=== PATIENT | male | born 1965 | race Caucasian/White ===

== ENCOUNTER 2017-06-24 13:01 | Emergency (ER) | payer BC ==
[~2017-06-24] VITALS: Ht 185.4 cm; Wt 97.7 kg
[2017-06-24] MEDS ORDERED: normal saline 1000ml 1,000 ML IV ONE (13:12)
[2017-06-24] MEDS ORDERED: ketorolac trometh. 30mg/ml inj. IV ONE (13:15)
[2017-06-24] MEDS ORDERED: tamsulosin 0.4mg capsule PO ONE (13:15)
[2017-06-24] MEDS ORDERED: morphine 10mg/ml inj. IV ONE (13:15)
[2017-06-24] MEDS ORDERED: ondansetron/PF 4mg/2ml inj IV ONE (13:15)
[2017-06-24] MEDS ORDERED: morphine 4 MG/ML inj SYRINge IV ONE (13:15)
[2017-06-24] MEDS ORDERED: normal saline 1000ML IV soln IVB ONE (13:15)
[2017-06-24] MEDS ORDERED: LIDOcaine 2% (20mg/ml) 5ml vial IV ONE (14:00)
[2017-06-24 14:24] LABS: CLARITY,URINE CLOUDY (Clear); COLOR,URINE YELLOW (Yellow); GLUCOSE, URINE NEGATIVE (Neg); KETONES,URINE NEGATIVE (Neg); LEUKOCYTE ESTERASE ,URINE NEGATIVE (Neg); NITRITES, URINE NEGATIVE (Neg); OCCULT BLOOD,URINE LARGE (Neg); PROTEIN,URINE TRACE mg/dl (Neg)
[2017-06-24 14:26] LABS: UA COLLECTION TYPE URINAL
[2017-06-24 14:27] LABS: URINE AMPHETAMINE SCREEN NEGATIVE (Neg); URINE BARBITUATE SCREEN NEGATIVE (Neg); URINE BENZODIAZEPINES SCREEN NEGATIVE (Neg); URINE CANNABINOID SCREEN POSITIVE (Neg); URINE COCAINE SCREEN POSITIVE (Neg); URINE METHADONE SCREEN NEGATIVE (Neg); URINE OPIATE SCREEN POSITIVE (Neg); URINE PHENCYCLIDINE SCREEN NEGATIVE (Neg)
[2017-06-24 14:47] LABS: AMORPHOUS PHOSPHATES 2+
[2017-06-24 14:48] LABS: BACTERIA,URINE 1+ /HPF (Neg); SQUAMOUS EPITHELIAL CELL,UR FEW /LPF (FEW); WBC,URINE 0-4 /HPF (0-4)
[2017-06-24 15:36] VITALS: BP 127/76
[2017-06-24] MEDS ORDERED: NAPR-56 PO (15:40)
[2017-06-24] MEDS ORDERED: FLO0.4C PO (15:40)
[2017-06-24] MEDS ORDERED: HYDR-565 PO (15:40)
== END 2017-06-24 15:53 | disposition home or self-care (01) ==
LOC: ER 13:02
DX: N23 Unspecified renal colic (principal); R31.9 Hematuria, unspecified; F19.20 Other psychoactive substance dependence, uncomplicated; F17.200 Nicotine dependence, unspecified, uncomplicated; Z98.890 Other specified postprocedural states; Z79.899 Other long term (current) drug therapy
CPT/HCPCS: 74018; 80305; 81001; 96361; 96374; 96375; 99285; J1885; J2001; J2270; J2405; J7030